=== PATIENT | male | born 1985 | race Caucasian/White ===

== ENCOUNTER → 2017-03-01 | Outpatient (CLI) | payer OTHER | END | disposition home or self-care (01) | LOC: C.LAB 02:05 | DX: Z02.83 Encounter for blood-alcohol and blood-drug test (principal) ==

== ENCOUNTER 2025-07-20 10:55 | Observation (INO) ==
[2025-07-20] MEDS: LABETALOL HCL IV 5 MG/ML 20ML IV STA ×3 (11:28→15:53)
[2025-07-20] MEDS: ASPIRIN CHEW 324 MG PO STA (11:28)
--- NOTE | 2025-07-20 11:31 | Emergency Department Note ---
Impression & Plan Chest pain, Hypertension, Elevated troponin I level ED Provider Note NAME: HUMZA ABAD AGE: 39 SEX: M : 1985 ARRIVES VIA: Walk-In INFORMANT: Patient, ED PROVIDER(S): Harry Chiang DO CHIEF COMPLAINT: Chest pain HPI: The patient is a 39-year-old male who presented to the emergency department for anterior chest pain. The patient started noticing chest pain earlier today. He had a bacterial infection sometime ago. He states ever since that time he has been noticing exertional chest pain. He denies having any lower extremity swelling or pain. He sometimes notices shortness of breath but not currently. He denies having any abdominal pain nausea or vomiting. The patient is often seen by his family doctor for the symptoms. ROS: See above HPI for pertinent positives & negatives. A total of 10 systems reviewed and were otherwise negative. PAST MEDICAL HISTORY: See Below PAST SURGICAL HISTORY: See Below FAMILY HISTORY: See Below SOCIAL HISTORY: See Below HOME MEDICATIONS: See Below ALLERGIES: See Below VITALS: See Below PHYSICAL EXAMINATION: GENERAL: Patient is awake alert in no acute distress patient is resting comfortably and showing no signs of anxiety EYES: The conjunctivae are clear. The pupils are round and reactive. EARS, NOSE, MOUTH AND THROAT: The nose is without any evidence of any deformity. NECK: The neck is nontender and supple. RESPIRATORY: Normal respiratory effort is noted there is no evidence of wheezing rhonchi or rales CARDIOVASCULAR: Tachycardic but regular heart sounds were noted to auscultation. There is no definite murmur. GASTROINTESTINAL: The abdomen is soft. Abdomen is nontender. MUSCULOSKELETAL/EXTREMITIES: There is no evidence of gross deformity full range of motion is noted in the hips and shoulders. SKIN: There is no obvious evidence of any rash. There are no petechiae, pallor or cyanosis noted. Pulses are symmetric in both wrist. NEUROLOGIC: Patient is awake alert and oriented x3 MEDICAL DECISION MAKING: The patient is a 39-year-old male who presented to the emergency department for an evaluation of chest pain. The patient is noticing chest pain as well as tachycardia. He had a recent pulmonary infection he was treated with antibiotics. The patient started noticing the symptoms over the last few days with his blood pressure being elevated. He started taking his antihypertensive medication only again yesterday. This included metoprolol as well as an JOZEF inhibitor. The patient presented today because he was still having chest pain. His blood pressure was very elevated. He was treated with IV antihypertensive medication and aspirin in the emergency department. He was reevaluated multiple times. I discussed the patient's laboratory and radiographic studies with him. Given his findings in the emergency department I feel that he would be a better candidate for inpatient management. [facility]. They will evaluate the patient in the emergency department for further management and disposition. Triage Nursing notes reviewed. Prior medical records reviewed Vital Signs: reviewed and remarkable for hypertension and tachycardia. Differential diagnosis: Cardiac ischemia, aortic dissection, pulmonary embolism, pneumothorax, pneumonia, pericarditis, myocarditis, esophageal rupture, GERD, cholecystitis, pancreatitis, musculoskeletal, as well as other pathologies. ER treatment provided: See below Diagnostics interpreted by me: ECG: EKG was obtained in the emergency department. My interpretation is sinus tachycardia at 124 bpm. There is no ectopy. There is no acute ST segment abnormalities noted. LVH was suggested by voltage criteria. Cardiac Monitoring: An order was placed for continuous cardiac monitoring. The monitor shows a rate of 89 bpm with sinus rhythm. Laboratory studies: As stated above and show below. Imaging studies: See below. Radiographic imaging was reviewed by myself Consultation(s): I discussed this case with the [facility] who [facility]. Past Med/Surg History Problem List (Updated 07/20/25 @ 13:31 by Harry Cihang DO) Elevated troponin I level (Acute) Hypertension (Acute) Chest pain (Acute) Social History Smoking Status: Current every day smoker Tobacco Type: Smokeless Tobacco (Dip or Chew) Preferred Language: Monegasque Feels Safe at Home: Yes Allergies Allergies Allergy/AdvReac Type Severity Reaction Status Date / Time No Known Allergies Allergy Unknown Unverified 10/01/04 11:57 Results & Data (ED) Vital Signs Vital Signs - 24 hr 07/20/25 10:59 07/20/25 11:28 07/20/25 11:51 Temperature 36.5 C Temperature Source Temporal Artery Scan Pulse Rate 127 H 113 H 113 H Pulse Rate from SpO2 Sensor 114 H Respiratory Rate 18 14 Blood Pressure 194/116 H 118/114 H 172/132 H Blood Pressure Mean 142 145 Pulse Oximetry 98 98 Oxygen Delivery Method Room Air Room Air Sepsis New/Unexplained Change in Mental Status No Sepsis Action Taken by Nursing No Action Required 07/20/25 11:57 07/20/25 12:03 07/20/25 12:04 Temperature Temperature Source Pulse Rate 108 H 107 H 112 H Pulse Rate from SpO2 Sensor Respiratory Rate Blood Pressure 175/131 H 178/128 H Blood Pressure Mean Pulse Oximetry Oxygen Delivery Method Sepsis New/Unexplained Change in Mental Status Sepsis Action Taken by Nursing 07/20/25 12:12 07/20/25 12:15 07/20/25 12:17 Temperature Temperature Source Pulse Rate 103 H 101 H Pulse Rate from SpO2 Sensor 103 H 101 H Respiratory Rate 18 21 Blood Pressure 178/128 H 170/123 H 156/120 H Blood Pressure Mean 144 138 127 Pulse Oximetry 98 97 Oxygen Delivery Method Sepsis New/Unexplained Change in Mental Status Sepsis Action Taken by Nursing 07/20/25 12:18 07/20/25 12:30 07/20/25 12:33 Temperature Temperature Source Pulse Rate 100 H 103 H 104 H Pulse Rate from SpO2 Sensor 100 H 104 H Respiratory Rate 23 22 Blood Pressure 156/120 H 157/123 H 157/123 H Blood Pressure Mean 132 134 Pulse Oximetry 97 98 Oxygen Delivery Method Room Air Room Air Sepsis New/Unexplained Change in Mental Status Sepsis Action Taken by Nursing 07/20/25 12:54 Temperature Temperature Source Pulse Rate 108 H Pulse Rate from SpO2 Sensor Respiratory Rate 14 Blood Pressure 173/133 H Blood Pressure Mean 149 Pulse Oximetry 97 Oxygen Delivery Method Room Air Sepsis New/Unexplained Change in Mental Status Sepsis Action Taken by Usp Medications Current Medication List: was personally reviewed by me Laboratory Data Attestation: I reviewed the patient's lab results. 07/20/25 11:14 07/20/25 11:14 Lab Results 07/20/25 07/20/25 Range/Units 11:14 13:03 WBC 11.60 H (4.8-10.8) K/ul RBC 5.32 (4.70-6.10) M/uL Hgb 16.3 (14.0-18.0) g/dL Hct 45.6 (42.0-52.0) % MCV 85.7 (80.0-100.0) fL MCH 30.6 (25.0-34.0) pg MCHC 35.7 (32.0-36.0) g/dL RDW Std Deviation 42.6 (36.4-46.3) fL RDW Coeff of Maisha 14.0 (11.5-14.5) % Plt Count 235 (130-400) K/uL MPV 11.9 (9.4-12.4) fL Immature Gran % (Auto) 0.2 % Neut % (Auto) 75.7 % Lymph % (Auto) 14.2 % Zapata % (Auto) 7.1 % Eos % (Auto) 2.1 % Baso % (Auto) 0.7 % Neut # (Auto) 8.79 H (1.40-6.50) K/uL Lymph # (Auto) 1.65 (1.20-3.40) K/uL Zapata # (Auto) 0.82 H (0.11-0.59) K/uL Eos # (Auto) 0.24 (0.00-0.50) K/uL Baso # (Auto) 0.08 (0.00-0.20) K/uL Immature Gran # (Auto) 0.02 (0.01-0.20) K/uL PT 10.4 (9.0-12.0) Seconds INR 1.0 (0.9-1.1) APTT 26 (21-31) Seconds PTT Ratio 1.0 D-Dimer 860 H* (0-500) ug/L FEU Sodium 138 (136-145) mmol/L Potassium 3.2 L (3.5-5.1) mmol/L Chloride 103 (98-107) mmol/L Carbon Dioxide 24 (21-32) mmol/L Anion Gap 11 (3-11) BUN 13 (6-23) mg/dl Creatinine 1.07 (0.6-1.4) mg/dl Est Cr Clr Drug Dosing 119.6 ml/min eGFR 89.41 BUN/Creatinine Ratio 12.1 (10-20) Glucose 132 H (70-99(Fasting)) mg/dl Calcium 9.4 (8.6-10.3) mg/dl Total Bilirubin 0.6 (0.2-1.0) mg/dl AST 16 (13-39) U/L ALT 17 (7-52) U/L Alkaline Phosphatase 125 H (34-104) U/L Troponin I High Sens 31.3 H 34.3 H (0-20) pg/ml Total Protein 7.9 (6.0-8.3) gm/dl Albumin 4.1 (3.4-5.0) gm/dl Globulin 3.8 (2.5-4.0) gm/dl Albumin/Globulin Ratio 1.1 (0.9-2) Lipase 28 (11-82) U/L Administered Medications Discontinued Medications Aspirin (Aspirin Chew 324 Mg) 324 mg PO NOW STA Stop: 07/20/25 11:22 Last Admin: 07/20/25 11:28 Dose: 324 mg Documented By: GEORGE Ioversol (Optiray 320 125ml) 119 ml IV ONCE ONE Stop: 07/20/25 12:47 Last Admin: 07/20/25 12:46 Dose: 119 ml Documented By: JAMES Labetalol HCl (Labetalol Hcl Iv 5 Mg/Ml 20ml) 10 mg IV NOW STA Stop: 07/20/25 11:22 Last Admin: 07/20/25 11:28 Dose: 10 mg Documented By: GEORGE Labetalol HCl (Labetalol Hcl Iv 5 Mg/Ml 20ml) 10 mg IV NOW STA Stop: 07/20/25 11:58 Last Admin: 07/20/25 12:03 Dose: 10 mg Documented By: GEORGE Morphine Sulfate (Morphine Sulfate 4 Mg/Ml 1 Ml Carp\Vial) 4 mg IV NOW STA Stop: 07/20/25 11:22 Last Admin: 07/20/25 11:32 Dose: Not Given Documented By: GEORGE Ondansetron HCl (Ondansetron Inj 2 Mg/Ml 2 Ml Vial) 4 mg IV NOW STA Stop: 07/20/25 11:22 Last Admin: 07/20/25 11:32 Dose: Not Given Documented By: GEORGE Imaging Data Attestation: I personally reviewed and interpreted this imaging study as follows: My Impression: 1 view chest x-ray was obtained in the emergency department. My interpretation is no free air or definite infiltrate, final report below. Radiologist's Impression: Chest X-Ray 07/20/25 11:21 XR chest 1V portable HISTORY: 39 years-old Male Chest pain, nonspecific COMPARISON: None TECHNIQUE: AP view of the chest FINDINGS: Cardiac silhouette is upper limits of normal in size. No pneumothorax, pleural effusion or airspace consolidation. Spondylotic spurring of the spine. Bones appear grossly intact. IMPRESSION: No acute process ACT 112: Negative or not required by law. The above report was generated using voice recognition software. It may contain grammatical, syntax or spelling errors. Electronically signed by: Chun Flores M.D. 07/20/2025 12:01 PM Chest CTA 07/20/25 12:09 CT ANGIOGRAM OF THE CHEST CLINICAL HISTORY: Chest pain and cough. COMPARISON STUDY: Chest radiograph performed earlier today. TECHNIQUE: Following the IV administration of 119 cc of Optiray 320, CT angiogram of the chest was performed from the upper abdomen to the thoracic inlet utilizing the pulmonary embolus protocol. Images are reviewed in the axial, sagittal, and coronal planes. 3-D MIPS images are created and assessed. IV contrast was administered without complication. A dose lowering technique was utilized adhering to the principles of ALARA. CT DOSE: 931.59 mGy.cm FINDINGS: No pulmonary emboli are identified. There is no thoracic aortic dissection. The heart is mildly enlarged. There is no pericardial effusion. There is no thoracic lymphadenopathy. No pneumothorax or pleural effusion is present. There are scattered small ill-defined nodular opacities within the lungs, including a 1.7 cm subpleural left upper lobe opacity on image 134 and a 9 mm right lower lobe nodular opacity on image 93. Scattered smaller nodular densities with mild adjacent groundglass opacity are present. Central airways are patent. There is probable hepatic steatosis. The visualized upper abdomen is otherwise unremarkable. IMPRESSION: 1. No pulmonary emboli identified. 2. Scattered ill-defined nodular opacities within the lungs with mild associated groundglass opacity. The findings favor a mild infectious process such as bronchiolitis. A chest CT in 3 months to ensure resolution is recommended. ACT 112: Negative or not required by law. Electronically signed by: Vaibhav Abreu M.D. 07/20/2025 1:12 PM Discharge Plan Visit Data Chief Complaint: Cardiac Assessment Stated Complaint: CHEST PAIN, HIGH BLOOD PRESSURE ED Provider: Harry Chiang Discharge Problem: Chest pain, Hypertension, Elevated troponin I level Patient Disposition: Being Evaluated by Hospitalist Condition: Fair Forms Stand Alone Forms: [facility] [place] Referrals Referrals: PCP,NO [Physician] -
[2025-07-20] MEDS: MoRPHine SULFATE 4 MG/ML 1 ML CARP\\VIAL IV STA (11:32)
[2025-07-20] MEDS: ONDANSETRON INJ 2 MG/ML 2 ML VIAL IV STA (11:32)
[2025-07-20 11:52] LABS: Hematocrit (blood only) 45.6 % (42.0-52.0); Hemoglobin 16.3 g/dL (14.0-18.0); Immature Granulocytes # (auto) 0.02 K/uL (0.01-0.20); Immature Granulocytes % (auto) 0.2 %; Mean Corpuscular Hemoglobin 30.6 pg (25.0-34.0); Mean Corpuscular Volume 85.7 fL (80.0-100.0); Platelet Count 235 K/uL (130-400); RDW Standard Deviation 42.6 fL (36.4-46.3); Red Blood Count 5.32 M/uL (4.70-6.10); White Blood Count 11.60 K/ul (4.8-10.8)
--- NOTE | 2025-07-20 12:02 | XRay Report ---
XR chest 1V portable HISTORY: 39 years-old Male Chest pain, nonspecific COMPARISON: None TECHNIQUE: AP view of the chest FINDINGS: Cardiac silhouette is upper limits of normal in size. No pneumothorax, pleural effusion or airspace c onsolidation. Spondylotic spurring of the spine. Bones appear grossly intact. IMPRESSION: No acute process ACT 112: Negative or not required by law. The above report was generated using voice recognition software. It may contain grammatical, syntax o r spelling errors. Electronically signed by: Chun Flores M.D. 07/20/2025 12:01 PM
[2025-07-20 12:04] LABS: INR 1.0 (0.9-1.1); Partial Thromboplastin Time 26 Seconds (21-31); Prothrombin Time 10.4 Seconds (9.0-12.0)
[2025-07-20 12:16] LABS: Albumin Level 4.1 gm/dl (3.4-5.0); Anion Gap 11.0 (3-11); Bilirubin,Total 0.6 mg/dl (0.2-1.0); Calcium 9.4 mg/dl (8.6-10.3); Carbon Dioxide 24.0 mmol/L (21-32); Chloride 103.0 mmol/L (98-107); Potassium 3.2 mmol/L (3.5-5.1); Sodium 138.0 mmol/L (136-145)
[2025-07-20 12:22] LABS: Alanine Aminotransferase 17.0 U/L (7-52); Albumin Globulin Ratio 1.1 (0.9-2); Alkaline Phosphatase 125.0 U/L (34-104); Blood Urea Nitrogen 13.0 mg/dl (6-23); Creatinine Clr Calc Pharmacy 119.6 ml/min; Globulin 3.8 gm/dl (2.5-4.0); Glucose 132.0 mg/dl (70-99(Fasting)); Lipase 28.0 U/L (11-82); Total Protein 7.9 gm/dl (6.0-8.3)
[2025-07-20] MEDS: OPTIRAY 320 125ml IV ONE (12:46)
--- NOTE | 2025-07-20 13:13 | CT Scan Report ---
CT ANGIOGRAM OF THE CHEST CLINICAL HISTORY: Chest pain and cough. COMPARISON STUDY: Chest radiograph performed earlier today. TECHNIQUE: Following the IV administration of 119 cc of Optiray 320, CT angiogram of the chest was pe rformed from the upper abdomen to the thoracic inlet utilizing the pulmonary embolus protocol. Images are reviewed in the axial, sagittal, and coronal planes. 3-D MIPS images are created and assessed. I V contrast was administered without complication. A dose lowering technique was utilized adhering to the principles of ALARA. CT DOSE: 931.59 mGy.cm FINDINGS: No pulmonary emboli are identified. There is no thoracic aortic dissection. The heart is mi ldly enlarged. There is no pericardial effusion. There is no thoracic lymphadenopathy. No pneumothora x or pleural effusion is present. There are scattered small ill-defined nodular opacities within the lungs, including a 1.7 cm subpleural left upper lobe opacity on image 134 and a 9 mm right lower lobe nodular opacity on image 93. Scattered smaller nodular densities with mild adjacent groundglass opac ity are present. Central airways are patent. There is probable hepatic steatosis. The visualized uppe r abdomen is otherwise unremarkable. IMPRESSION: 1. No pulmonary emboli identified. 2. Scattered ill-defined nodular opacities within the lungs with mild associated groundglass opacity. The findings favor a mild infectious process such as bronchiolitis. A chest CT in 3 months to ensure resolution is recommended. ACT 112: Negative or not required by law. Electronically signed by: Vaibhav Abreu M.D. 07/20/2025 1:12 PM
--- NOTE | 2025-07-20 13:47 | History & Physical Report ---
Date of Service July 20, 2025 Assessment & Plan (1) Hypertension: (2) Chest pain: (3) Elevated troponin I level: (4) Bronchiolitis: Plan - Admit to medtele - Does not appear that this is ACS, EKG without acute findings, no current chest pain -Continue metoprolol succinate 50 QAM, amlodipine 10 mg QAM, add losartan 50 mg QPM, and olmesartan tomorrow if continues to have elevated BP. Pt took these meds all last night and this morning. - given labetalol 20 mg IV in the ER with some improvement. Hydralazine 10 mg IV now and can continue prn with dosing parameters for hypertension - Check Lymes with hx of recent tick bites - CTA reviewed showing no pulmonary embolism but does show lung nodules suspicious for previous infectious source with ground glass opacities. Needs repeat imaging in 3 months to ensure this resolved. - Discussed weight loss at bedside with the patient - encouraged lifestyle modifications with including cardio and strength training exercises a few times per week for at least 20 minutes. Goal of 40 lbs weight loss to improve htn, sleep apnea. - Will obtain echocardiogram - Troponin are mildly bumped in the 30s, monitor with Q6H labs - Reduce alcohol use - drinking 9oz liquor daily, will place on AWSS score and prn ativan for any withdrawal symptoms - Cessation of chewing tobacco was encouraged at bedside as he chews 1 can in 5 days, previously smoked cigarettes, quite several years ago - Will need PCP follow up on dc - Consider nephrology follow up as outpatient DVT ppx: scds, ambulatory Lines: PIV x 1 FEN/GI: HH diet CODE: FULL Dispo: From home, likely to remain in the hospital x 1-2 days A total of 75 minutes were spent with greater than 50% of that time face to face with the patient, personally reviewing all current laboratories, imaging studies, past medication reconciliation, outpatient chart review, and discussion with specialists to collaborate care for the patient with attending. Please see attending documentation for corrections and/or additions. History of Present Illness Chief Complaint: Chest pain, elevated BP Primary Care Provider: Blaise Waggoner MD This is a 39-year-old male with PMHx of elevated blood pressure, obesity with BMI of 39, recent bacterial sinusitis treated with Augmentin x 10 days, who presents to the hospital with acute worsening chest pain/heaviness. Per outpatient chart review review he was seen at [facility] at the end of June and prescribed 10-day course of Augmentin and fluticasone propionate nasal spray for bacterial sinusitis. There was no viral panel obtained at that time. Patient states that he has been having elevated blood pressure the past 3 weeks, with intermittent chest pain since having been diagnosed with the bacterial sinusitis. He resumed taking his home antihypertensive which include amlodipine 10 mg daily, Olmesartan 40 mg daily, metoprolol succinate 50 mg which he restarted last night after not taking if for just less than 1 year. He previously smoked cigarettes, currently chews tobacco with 1 can in about 5 days. Pt admits to alcohol use, drinks 3oz ronaldo with jeff beer and water x 3 glasses about every night. We discussed that this is 9 standard drinks daily for a person, and that it is recommended that he cut this back to only 2-3 standard drinks per day. Pt also notes he was previously prescribed cpap for sleep apnea, however could not wear the mask/nasal pillow style. Pt also notes frequent tick bites due to hunting a lot recently. He has never been tested for lymes disease. Pt thinks he was bite by something on his back within the past week. His parents are with him at bedside and support the history. In the ER today patient is found to have significantly elevated blood pressure of 173/133, pulse 110, hypokalemic with K of 3.2, borderline elevated WBC of 11.60, D-dimer of 830, troponin 34.3-31.3. a CTA of the chest was obtained to rule out pulmonary embolism, is negative for such however does show ill-defined nodular opacities within the lung with associated ground glass opacity, favoring a mild infectious process such as bronchiolitis. CXR is negative for acute findings. BP repeat is down to 169/121, improved from previously. Allergies Allergy/AdvReac Type Severity Reaction Status Date / Time No Known Allergies Allergy Unknown Verified 07/20/25 14:49 Home Medications Medication Instructions Recorded Confirmed Type amlodipine 10 mg tablet 10 mg PO DAILY 07/20/25 07/20/25 History metoprolol succinate 50 mg 50 mg PO DAILY 07/20/25 07/20/25 History tablet,extended release 24 hr olmesartan 40 mg tablet 40 mg PO DAILY 07/20/25 07/20/25 History Past Med/Surg History Problem List (Updated 07/20/25 @ 13:47 by Monique Fiore PA-C) Bronchiolitis Elevated troponin I level (Acute) Hypertension (Acute) Chest pain (Acute) Family History (Updated 07/20/25 @ 14:26 by Monique Fiore PA-C) Father Heart disease Hypertension Social History (Updated 07/20/25 @ 14:27 by Monique Fiore PA-C) Smoking Status: Former smoker Tobacco Type: Cigarettes and Smokeless Tobacco (Dip or Chew) Do You Dip or Chew Tobacco: Yes; Hx Alcohol Use: Yes Hx Substance Use: No Preferred Language: [place] Feels Safe at Home: Yes Review of Systems Review of Systems: Constitutional: No fever, sweats or chills Eyes: No diplopia, no worsening or blurred vision ENT: normal hearing, no trouble swallowing Respiratory: + Dry cough, no sputum, nodyspnea at rest, occasional dyspnea on exertion Cardiovascular: + intermittent chest pain not exacerbated by exertional activities, no tightness or palpitations Abdomen: No pain, nausea, vomiting, diarrhea or constipation Musculoskeletal: No joint pain, calf pain, swelling Neurologic: No weakness, numbness/tingling, or balance problems Psychiatric: No anxiety or depression Skin: No rash or itch Physical Exam Physical Exam: General: awake, alert, no apparent distress, obese white male BMI 39 Head: Normocephalic, atraumatic ENT: PERRL, EOMI, no pharyngeal exudate, mucous membranes moist Chest: Clear to auscultation, on room air, no adventitious breath sounds Cardiac: Regular rate and rhythm, no murmur, no JVD, normal peripheral pulses, good capillary refill Abdominal: NABS x 4 quadrants, soft, nondistended, nontender to palpation, no rebound or guarding Extremities: Normal inspection, no peripheral edema or erythema, calfs nontender to palpation Psych: Normal mood and affect Neuro: AAO x 3, strength intact bilaterally and rated 5/5, no motor deficits, speech is clear, no peripheral sensory deficits Results & Data Results & Data Vital Signs (Past 12 Hours) Vital Signs Temp Pulse Resp BP Pulse Ox O2 Del Method 07/20/25 12:54 108 H 14 173/133 H 97 Room Air 07/20/25 12:33 104 H 157/123 H 07/20/25 12:30 103 H 22 157/123 H 98 Room Air 07/20/25 12:18 100 H 23 156/120 H 97 Room Air 07/20/25 12:17 156/120 H 07/20/25 12:15 101 H 21 170/123 H 97 07/20/25 12:12 103 H 18 178/128 H 98 07/20/25 12:04 112 H 07/20/25 12:03 107 H 178/128 H 07/20/25 11:57 108 H 175/131 H 07/20/25 11:51 113 H 14 172/132 H 98 Room Air 07/20/25 11:28 113 H 118/114 H 07/20/25 10:59 36.5 C 127 H 18 194/116 H 98 Room Air Laboratory Results 07/20/25 07/20/25 13:03 11:14 WBC 11.60 H RBC 5.32 Hgb 16.3 Hct 45.6 MCV 85.7 MCH 30.6 MCHC 35.7 RDW Std Deviation 42.6 RDW Coeff of Maisha 14.0 Plt Count 235 MPV 11.9 Immature Gran % (Auto) 0.2 Neut % (Auto) 75.7 Lymph % (Auto) 14.2 [place] % (Auto) 7.1 Eos % (Auto) 2.1 Baso % (Auto) 0.7 Neut # (Auto) 8.79 H Lymph # (Auto) 1.65 [place] # (Auto) 0.82 H Eos # (Auto) 0.24 Baso # (Auto) 0.08 Immature Gran # (Auto) 0.02 PT 10.4 INR 1.0 APTT 26 PTT Ratio 1.0 D-Dimer 860 H* Sodium 138 Potassium 3.2 L Chloride 103 Carbon Dioxide 24 Anion Gap 11 BUN 13 Creatinine 1.07 Est Cr Clr Drug Dosing 119.6 eGFR 89.41 BUN/Creatinine Ratio 12.1 Glucose 132 H Calcium 9.4 Total Bilirubin 0.6 AST 16 ALT 17 Alkaline Phosphatase 125 H Troponin I High Sens 34.3 H 31.3 H Total Protein 7.9 Albumin 4.1 Globulin 3.8 Albumin/Globulin Ratio 1.1 Lipase 28 Diagnostic Findings Chest X-Ray 07/20/25 11:21 XR chest 1V portable HISTORY: 39 years-old Male Chest pain, nonspecific COMPARISON: None TECHNIQUE: AP view of the chest FINDINGS: Cardiac silhouette is upper limits of normal in size. No pneumothorax, pleural effusion or airspace consolidation. Spondylotic spurring of the spine. Bones appear grossly intact. IMPRESSION: No acute process ACT 112: Negative or not required by law. The above report was generated using voice recognition software. It may contain grammatical, syntax or spelling errors. Electronically signed by: Chun Flores M.D. 07/20/2025 12:01 PM Chest CTA 07/20/25 12:09 CT ANGIOGRAM OF THE CHEST CLINICAL HISTORY: Chest pain and cough. COMPARISON STUDY: Chest radiograph performed earlier today. TECHNIQUE: Following the IV administration of 119 cc of Optiray 320, CT angiogram of the chest was performed from the upper abdomen to the thoracic inlet utilizing the pulmonary embolus protocol. Images are reviewed in the axial, sagittal, and coronal planes. 3-D MIPS images are created and assessed. IV contrast was administered without complication. A dose lowering technique was utilized adhering to the principles of ALARA. CT DOSE: 931.59 mGy.cm FINDINGS: No pulmonary emboli are identified. There is no thoracic aortic d issection. The heart is mildly enlarged. There is no pericardial effusion. There is no thoracic lymphadenopathy. No pneumothorax or pleural effusion is present. There are scattered small ill-defined nodular opacities within the lungs, including a 1.7 cm subpleural left upper lobe opacity on image 134 and a 9 mm right lower lobe nodular opacity on image 93. Scattered smaller nodular densities with mild adjacent groundglass opacity are present. Central airways are patent. There is probable hepatic steatosis. The visualized upper abdomen is otherwise unremarkable. IMPRESSION: 1. No pulmonary emboli identified. 2. Scattered ill-defined nodular opacities within the lungs with mild associated groundglass opacity. The findings favor a mild infectious process such as bronchiolitis. A chest CT in 3 months to ensure resolution is recommended. ACT 112: Negative or not required by law. Electronically signed by: Vaibhav Abreu M.D. 07/20/2025 1:12 PM ECG Additional Comments: Sinus tachycardia, left axis deviation, possible LVH Code Status & VTE Plan Code Status Full code - discussed with pt at bedside Supervising Physician Co-Signing Physician Notes 39 yo M w/ PMH of elevated blood pressure (on 4 BP meds, non compliant), obesity with BMI of 39, recent bacterial sinusitis treated with Augmentin x 10 days presents w/ on and off chest pain for about 3 weeks now, no radiation, not a/w sob/sweating/nausea/dry heaves, lasting few minutes to several minutes, eases on its own, would come at rest and w/ activity. Pt denies N, V, D, Fever. Pt denies sore throat, cough, headache. Labs fairly wnl, wbc slightly elevated, no s/s of infection, monitor off antibiotic D dimer elevated, she is negative for PE. Hypokalemia, replete potassium, labs in AM. Troponin elevation, flat trend likely demand ischemia in the setting of high blood pressure. Continue to trend troponin, will get echo, continue telemetry monitoring. Hypertensive urgency: Resume losartan, amlodipine, metoprolol. Will need to uptitrate medications as needed and possibly add hydrochlorothiazide if blood pressure is not controlled. Blood pressure medications on board. On exam: Patient on room air, no BLE edema,Heart rate in high 90s, heart/lung/abdomen examination fairly WNL. Total time spent independently: 25 minutes. I have seen and examined the patient and have discussed the case with the provider above. I agree with the assessment and plan as stated.
[2025-07-20 15:11] LABS: Chlamydia pneumoniae PCR Not Detected (NotDetected); Coronavirus 229E PCR Not Detected (NotDetected); Coronavirus CoV-2 (COVID19)PCR Not Detected (NotDetected); Coronavirus HKU1 PCR Not Detected (NotDetected); Coronavirus NL63 PCR Not Detected (NotDetected); Coronavirus OC43PCR Not Detected (NotDetected); Human Metapneumovirus PCR Not Detected (NotDetected); Parainfluenza Virus 1 PCR Not Detected (NotDetected); Parainfluenza Virus 2 PCR Not Detected (NotDetected); Parainfluenza Virus 3 PCR Not Detected (NotDetected); Parainfluenza Virus 4 PCR Not Detected (NotDetected); Respiratory Syncytial VirusPCR Not Detected (NotDetected); Rhinovirus/Enterovirus PCR Not Detected (NotDetected)
[2025-07-20] MEDS: POTASSIUM CHLORIDE CRTAB 20 MEQ TABCR PO STA (15:52)
[2025-07-20] MEDS ORDERED: ONDANSETRON INJ 2 MG/ML 2 ML VIAL IV PRN (16:59)
[2025-07-20] MEDS ORDERED: LORazepam Inj 2 MG in SYRINGE 1 ML IV PRN (16:59)
[2025-07-20] MEDS ORDERED: LORazepam Inj 3 MG in SYRINGE 1.5 ML IV PRN (16:59)
[2025-07-20] MEDS ORDERED: ACETAMINOPHEN 325 MG TAB PO PRN (16:59)
[2025-07-20] MEDS ORDERED: LORazepam Inj 1 MG in SYRINGE 0.5 ML IV PRN (16:59)
--- NOTE | 2025-07-20 18:25 | XCELERA ---
[id number] \\[id number]
[2025-07-20] MEDS: LOSARTAN POTASSIUM 50 MG TAB PO SCH (19:37)
[2025-07-20] MEDS ORDERED: LOSARTAN POTASSIUM 50 MG TAB PO SCH (21:00)
[2025-07-21 08:39] LABS: Hematocrit (blood only) 45.0 % (42.0-52.0); Hemoglobin 15.9 g/dL (14.0-18.0); Mean Corpuscular Hemoglobin 30.6 pg (25.0-34.0); Mean Corpuscular Volume 86.5 fL (80.0-100.0); Platelet Count 208 K/uL (130-400); RDW Standard Deviation 44.1 fL (36.4-46.3); Red Blood Count 5.20 M/uL (4.70-6.10); White Blood Count 7.91 K/ul (4.8-10.8)
[2025-07-21 08:54] LABS: Anion Gap 9.0 (3-11); Blood Urea Nitrogen 11.0 mg/dl (6-23); Calcium 9.3 mg/dl (8.6-10.3); Carbon Dioxide 26.0 mmol/L (21-32); Chloride 104.0 mmol/L (98-107); Cholesterol 209.0 mg/dl (0-200); Creatinine Clr Calc Pharmacy 122.8 ml/min; Glucose 117.0 mg/dl (70-99(Fasting)); HDL Cholesterol 67.0 mg/dl; Potassium 4.3 mmol/L (3.5-5.1); Sodium 139.0 mmol/L (136-145); Triglycerides 131.0 mg/dl (0-150)
[2025-07-21] MEDS: METOPROLOL SUCC 50MG EXT REL TAB PO SCH (08:55)
[2025-07-21 09:08] LABS: Hemoglobin A1C 5.2 % (4.5-5.6)
--- NOTE | 2025-07-21 09:44 | Cardiology Consultation ---
Date of Consultation July 21, 2025 Assessment & Plan (1) Hypertensive urgency: Patient presents with chest pain and uncontrolled hypertension. He has been found to have moderate left ventricular systolic dysfunction with moderate global left ventricular hypokinesis, left ventricular ejection fraction in the range of 35-40%. He has a longstanding history of hypertension had previously been prescribed 4 agents, metoprolol succinate 50 mg daily, olmesartan 40 mg daily, amlodipine 10 mg daily, and chlorthalidone 25 mg daily. He has previously been seen by [facility] most recent visit a year ago and patient states that around that time he completely discontinued all 4 of his blood pressure medications. The patient presents with chest tightness, mild but flat elevation in the high sensitive troponin noted and no ischemic changes on EKG. Blood pressure has improved with reinitiation of the oral agents amlodipine, metoprolol, losartan. -Presentation suggestive of uncontrolled hypertension with left ventricular systolic dysfunction which may be related to the underlying uncontrolled hypertension or related to his alcohol use. Volume status is euvolemic. -Recommend transitioning from metoprolol succinate to carvedilol, starting with dose of 6.25 mg twice daily. -Transition losartan to Entresto 24/26 mg twice daily. -Discontinue amlodipine due to left ventricular systolic dysfunction. -Patient counseled to cut back or ideally stop alcohol. Although the presence of obstructive coronary disease is not excluded in this patient, I do not think his presentation is suggestive of an acute coronary syndrome. Future considerations include stress myocardial perfusion imaging study as an outpatient once blood pressure under better control.Patient to remain in the hospital on the telemetry unit. Siria Brown DO History of Present Illness Attending Physician: Kevin Cardona DO History of Present Illness Winston Reeves is a 39 yea old male seen in cardiology consultation per the request of Dr Cardona for the evaluation of hypertension and newly diagnosed moderate left ventricular systolic dysfunction. Both of patient's parents were at the bedside during my evaluation. Patient notes having had a sinus infection about a month ago. His congestion has resolved but he notes that for the last 3 weeks he has had waxing and waning chest discomfort. He works in the field of maintenance and when he arrived for his job yesterday before he did any physical chores he felt a vague midline chest tightness. On arrival to the emergency department his initial blood pressure was 194/116. He received a dose of 5 mg of IV labetalol followed by oral metoprolol succinate, losartan. He states his symptoms resolved in the emergency department prior to being admitted and transferred to the telemetry floor. He was comfortable overnight last night and thus far today. PAST MEDICAL HISTORY hypertension FAMILY HISTORY Father alive at the age of 67, no known history of coronary heart disease, he is on medication for hypertension. He has been diagnosed with dyslipidemia but has been intolerant to his prescribed statin medication and therefore is not on statin medication Mother is alive at the age of 66, no history of heart disease Maternal grandfather with history of myocardial infarction Paternal grandfather history of myocardial infarction SOCIAL HISTORY He uses smokeless tobacco, having previously smoked cigarettes Works in [employer] He drinks 3 ounces of ronaldo with jeff beer and water x 3 glasses every night Allergies Allergy/AdvReac Type Severity Reaction Status Date / Time No Known Allergies Allergy Unknown Verified 07/20/25 14:49 Home Medications Medication Instructions Recorded Confirmed Type amlodipine 10 mg tablet 10 mg PO DAILY 07/20/25 07/20/25 History metoprolol succinate 50 mg 50 mg PO DAILY 07/20/25 07/20/25 History tablet,extended release 24 hr olmesartan 40 mg tablet 40 mg PO DAILY 07/20/25 07/20/25 History Patient History Family History (Updated 07/20/25 @ 14:26 by Monique Fiore PA-C) Father Heart disease Hypertension Social History Smoking Status: Never smoker Tobacco Type: Smokeless Tobacco (Dip or Chew) Second Hand Exposure: No; Do You Dip or Chew Tobacco: Yes; Tobacco Cessation Education Requested by Patient: No Hx Alcohol Use: Yes Alcohol type: hard liquor Hx Substance Use: No Preferred Language: Welsh Crm Administrator Required: No Beliefs That Will Affect Care: None Current Living Situation: Family Other Information That Helps Us Care for You: No Feels Safe at Home: Yes Assistive Devices: None Review of Systems Review of Systems: All systems reviewed & are unremarkable except as noted in HPI & below Physical Exam Physical Exam: Temp Pulse Resp BP Pulse Ox O2 Del Method 36.3 C L 98 H 16 147/101 H 97 Room Air 07/21/25 08:02 07/21/25 08:02 07/21/25 08:02 07/21/25 08:02 07/21/25 08:02 07/21/25 08:02 Constitutional: + obese; no acute distress Eyes: PERRL, conjunctivae normal, anicteric sclerae ENMT: external ear and nose normal, oropharynx normal Respiratory: normal respiratory effort, lungs clear to auscultation Cardiovascular: RRR, no murmur, no edema Vessels: no JVD Extremities: + edema Gastrointestinal (Abdomen): normal bowel sounds, soft, nontender, no hepatosplenomegaly Neurologic: PERRL, EOMI, accommodation nl, no face palsy, no dysarthria Results & Data Laboratory Results Cardiac Enzymes 07/20/25 07/20/25 07/20/25 Range/Units 11:14 13:03 18:39 AST 16 (13-39) U/L Troponin I High Sens 31.3 H 34.3 H 35.8 H (0-20) pg/ml 07/20/25 07/21/25 Range/Units 23:25 08:22 AST (13-39) U/L Troponin I High Sens 36.9 H 26.5 H D (0-20) pg/ml Coagulation 07/20/25 Range/Units 11:14 PT 10.4 (9.0-12.0) Seconds APTT 26 (21-31) Seconds Lipids 07/21/25 Range/Units 08:22 Triglycerides 131 (0-150) mg/dl Cholesterol 209 H (0-200) mg/dl HDL Cholesterol 67 mg/dl Cholesterol/HDL Ratio 3.1 (0-5) LDL cholesterol 116 mg /dl CBC 07/20/25 07/21/25 Range/Units 11:14 08:22 WBC 11.60 H 7.91 (4.8-10.8) K/ul RBC 5.32 5.20 (4.70-6.10) M/uL Hgb 16.3 15.9 (14.0-18.0) g/dL Hct 45.6 45.0 (42.0-52.0) % Plt Count 235 208 (130-400) K/uL Neut # (Auto) 8.79 H (1.40-6.50) K/uL Lymph # (Auto) 1.65 (1.20-3.40) K/uL [place] # (Auto) 0.82 H (0.11-0.59) K/uL Eos # (Auto) 0.24 (0.00-0.50) K/uL Baso # (Auto) 0.08 (0.00-0.20) K/uL Comprehensive Metabolic Panel 07/20/25 07/21/25 Range/Units 11:14 08:22 Sodium 138 139 (136-145) mmol/L Potassium 3.2 L 4.3 D (3.5-5.1) mmol/L Chloride 103 104 (98-107) mmol/L Carbon Dioxide 24 26 (21-32) mmol/L BUN 13 11 (6-23) mg/dl Creatinine 1.07 1.08 (0.6-1.4) mg/dl Glucose 132 H 117 H (70-99(Fasting)) mg/dl Calcium 9.4 9.3 (8.6-10.3) mg/dl AST 16 (13-39) U/L ALT 17 (7-52) U/L Alkaline Phosphatase 125 H (34-104) U/L Total Protein 7.9 (6.0-8.3) gm/dl Albumin 4.1 (3.4-5.0) gm/dl Diagnostic Findings Summary transthoracic echocardiogram performed 07/20/2025, with images reviewed and interpreted independently: The study was technically adequate. There is no comparison study available. Left ventricular systolic function is moderately reduced. Left Ventricular Ejection Fraction = 35-40%. There is mild concentric left ventricular hypertrophy. There is moderate global hypokinesis of the left ventricle. There is mild mitral regurgitation. Aortic root is mildly enlarged, 4.0 cm -no prior studies are available for comparison Summary of CT angiogram of the chest 07/20/2025: 1. No pulmonary emboli identified. 2. Scattered ill-defined nodular opacities within the lungs with mild associated groundglass opacity. The findings favor a mild infectious process such as bronchiolitis. A chest CT in 3 months to ensure resolution is recommended. EKG performed 07/20/2025 interpreted dependently revealed sinus tachycardia at 124 bpm. Moderate voltage criteria for left ventricular hypertrophy noted in lead aVL. Repeat EKG performed 07/21/2025 at 907 interpreted independently revealed sinus tachycardia 104 bpm, incomplete right bundle branch block, corrected QT interval is measured to be mildly prolonged at 500 ms, left ventricular hypertrophy by voltage criteria, no acute ischemic changes PG Care Time/CCT Total # of Minutes Spent Total Time Spent with Patient: Total time spent is greater than 50% in coordination of care (as documented) at patient's floor/unit and/or counseling patient: Coding Level of Care Code 60187 IN/OBS CONSULT LVL 4,60M Diagnoses Hypertensive urgency I16.0
--- NOTE | 2025-07-21 09:46 | Hospitalist Progress Note ---
Date of Service July 21, 2025 Assessment & Plan (1) Hypertension: (2) Chest pain: (3) Elevated troponin I level: (4) Bronchiolitis: Plan 39M with PMH HTN, tobacco abuse presents with substernal chest pain and HTN #Chest pain #New Cardiomyopathy -It is not related to exertion or improved with rest -No radiating symptoms -Non-cardiac by description however he did have a mild trop elevation 31-->36-->26 -Unclear clinical significance of his trop elevation -CTA neg for PE but did show possible bronchiolitis- no resp symptoms at this time -EKG in ED showing sinus tach with LVH likely from poorly controlled HTN -TTE shows EF 35% which is new. -No s/s CHF Plan -Appreciate cardio input, will likely need an ischemic workup prior to DC -Cardiac monitoring #HTN -BP better today, currently on ARB, norvasc, and toprol daily -Given his newly decreased EF, cardio will likely adjust regimen -PRN IV hydralazine #Tobacco abuse -He was counseled on importance of cessation on admission I spent a total of 55 minutes coordinating, documenting, and providing care for this patient excluding time spent in the performance of separately billed services. This included personally reviewing all current laboratories and imaging studies, medical reconciliation, outpatient chart review and discussion with specialists Admission and Anticipated Discharge Date Admission Date: July 20, 2025 Subjective feeling well today without any complaints. Physical Exam Physical Exam: Vitals and labs reviewed General: obese Well appearing, NAD HEENT: EOMI, PERRLA Neck: Supple Cardiac: RRR no rubs gallops or murmurs Lungs: CTA no rhonchi wheezing or rales Abd: S NT ND BS positive : Deffered MSK: Full ROM. No obvious deformities Ext: No Edema cyanosis Skin: Warm, Dry Neuro: AOx3 No focal deficits. Psych: Normal Mood Results & Data Results & Data Vital Signs (Past 12 Hours) Vital Signs Temp Pulse Pulse Resp BP Pulse Ox O2 Del Method 07/21/25 08:02 36.3 C L 98 H 16 147/101 H 97 Room Air 07/21/25 07:00 78 07/21/25 03:34 36.6 C 96 H 16 138/94 94 Room Air 07/20/25 23:23 36.7 C 90 18 150/101 H 98 Room Air 07/20/25 21:56 85 Laboratory Results Abnormal lab results 07/20/25 07/20/25 07/20/25 Range/Units 11:14 13:03 18:39 WBC 11.60 H (4.8-10.8) K/ul Neut # (Auto) 8.79 H (1.40-6.50) K/uL [place] # (Auto) 0.82 H (0.11-0.59) K/uL D-Dimer 860 H* (0-500) ug/L FEU Potassium 3.2 L (3.5-5.1) mmol/L Glucose 132 H (70-99(Fasting)) mg/dl Alkaline Phosphatase 125 H (34-104) U/L Troponin I High Sens 31.3 H 34.3 H 35.8 H (0-20) pg/ml Cholesterol (0-200) mg/dl 07/20/25 07/21/25 Range/Units 23:25 08:22 WBC (4.8-10.8) K/ul Neut # (Auto) (1.40-6.50) K/uL [place] # (Auto) (0.11-0.59) K/uL D-Dimer (0-500) ug/L FEU Potassium (3.5-5.1) mmol/L Glucose 117 H (70-99(Fasting)) mg/dl Alkaline Phosphatase (34-104) U/L Troponin I High Sens 36.9 H 26.5 H D (0-20) pg/ml Cholesterol 209 H (0-200) mg/dl
[2025-07-21 12:40] LABS: Thyroid Stimulating Hormone 1.278 uIu/ml (0.300-4.500)
[2025-07-21] MEDS: LABETALOL HCL IV 5 MG/ML 20ML IV PRN (21:12)
[2025-07-21] MEDS: VALSARTAN/SACUBITRIL 26/24MG TAB PO SCH (21:12)
--- NOTE | 2025-07-22 09:20 | Electrocardiogram Report ---
Test Reason : Blood Pressure : */* mmHG Vent. Rate : 124 BPM Atrial Rate : 124 BPM P-R Int : 148 ms QRS Dur : 98 ms QT Int : 330 ms P-R-T Axes : 36 -37 78 degrees QTcB Int : 474 ms Sinus tachycardia Left axis deviation Moderate voltage criteria for LVH, may be normal variant ( R in aVL , [place] product ) Abnormal ECG No previous ECGs available Confirmed by Jeff Maravilla ([id number]) on 07/22/2025 9:19:59 AM Referred By: REFERRED SELF Confirmed By: Jeff Maravilla
--- NOTE | 2025-07-22 09:59 | Electrocardiogram Report ---
Test Reason : Blood Pressure : */* mmHG Vent. Rate : 104 BPM Atrial Rate : 104 BPM P-R Int : 156 ms QRS Dur : 96 ms QT Int : 382 ms P-R-T Axes : 21 -39 69 degrees QTcB Int : 502 ms Sinus tachycardia Possible Left atrial enlargement Left axis deviation Incomplete right bundle branch block Minimal voltage criteria for LVH, may be normal variant ( R in aVL ) Prolonged QT Abnormal ECG When compared with ECG of 20-Jul-2025 11:07, (unconfirmed) No significant change was found Confirmed by Jeff Maravilla ([id number]) on 07/22/2025 9:58:30 AM Referred By: REFERRED SELF Confirmed By: Jeff Maravilla
--- NOTE | 2025-07-22 10:14 | Cardiology Progress Note ---
Date of Service July 22, 2025 Assessment & Plan (1) Hypertensive urgency: Plan: Patient presents with chest pain and uncontrolled hypertension. He has been found to have moderate left ventricular systolic dysfunction with moderate global left ventricular hypokinesis, left ventricular ejection fraction in the range of 35-40%. He has a longstanding history of hypertension had previously been prescribed 4 agents, metoprolol succinate 50 mg daily, olmesartan 40 mg daily, amlodipine 10 mg daily, and chlorthalidone 25 mg daily. He has previously been seen by [facility] nephrology most recent visit a year ago and patient states that around that time he completely discontinued all 4 of his blood pressure medications. Although the presence of obstructive coronary disease is not excluded in this patient, I do not think his presentation is suggestive of an acute coronary syndrome. Nonischemic cardiomyopathy related to long standing uncontrolled hypertension (off medications x 1 year) versus alcohol related cardiomyopathy felt to be likely. Future considerations include stress myocardial perfusion imaging study as an outpatient once blood pressure under better control. -Titrate Coreg to 12.5 mg BID. -Entresto 24/26 mg twice daily. -Discontinue amlodipine due to left ventricular systolic dysfunction. -Patient counseled to cut back or ideally stop alcohol. A follow up BMP order was placed . Await results prior to consideration for discharge. Effort underway to obtain prior auth for generic Sacubitril/ valsartan Outpatient BMP in a week to follow up kidney function and electrolytes (I will place order in outpatient chart). Request for cardio follow up visit placed in outpatient chart. Siria Brown DO Admission and Anticipated Discharge Date Admission Date: July 20, 2025 Subjective Patient seen in cardiology follow up. Feels well without chest discomfort or shortness of breath. Telemetry reveals SR in the 80s to 90s. Review of Systems Review of Systems: All systems reviewed & are unremarkable except as noted in HPI & below Physical Exam Physical Exam: Temp Pulse Resp BP Pulse Ox O2 Del Method 36.3 C L 93 H 20 151/93 H 95 Room Air 07/22/25 07:49 07/22/25 07:49 07/22/25 07:49 07/22/25 07:49 07/22/25 07:49 07/22/25 07:49 Constitutional: + obese; no acute distress Eyes: PERRL, conjunctivae normal, anicteric sclerae ENMT: external ear and nose normal, oropharynx normal Respiratory: normal respiratory effort, lungs clear to auscultation Cardiovascular: RRR, no murmur, no edema Vessels: no JVD Extremities: + edema Gastrointestinal (Abdomen): normal bowel sounds, soft, nontender, no hepatosplenomegaly Neurologic: PERRL, EOMI, accommodation nl, no face palsy, no dysarthria Results & Data Laboratory Results Intake and Output 07/21/25 07/22/25 07/22/25 22:59 06:59 14:59 Intake Total 350 / 1010 300 / 1010 Balance 350 / 1010 300 / 1010 Intake: Oral 350 / 1010 300 / 1010 Other: # Unmeasured Voids 1 Diagnostic Findings BMP results are pending Coding Level of Care Code 90090 SUB INP/OBS CARE 3/50MIN Diagnoses Hypertensive urgency I16.0
[2025-07-22 11:55] LABS: Anion Gap 7.0 (3-11); Blood Urea Nitrogen 11.0 mg/dl (6-23); Calcium 9.2 mg/dl (8.6-10.3); Carbon Dioxide 24.0 mmol/L (21-32); Chloride 105.0 mmol/L (98-107); Creatinine Clr Calc Pharmacy 145.7 ml/min; Glucose 111.0 mg/dl (70-99(Fasting)); Potassium 3.7 mmol/L (3.5-5.1); Sodium 136.0 mmol/L (136-145)
--- NOTE | 2025-07-22 12:14 | Discharge Summary ---
Discharge Summary Date of Service July 22, 2025 Principal Dx & Hospital Course #1 = Principal Diagnosis (1) Hypertension: (2) Chest pain: (3) Elevated troponin I level: (4) Bronchiolitis: Plan 39M with PMH HTN, tobacco abuse presents with substernal chest pain and HTN. He was found to have a newly reduced EF of 35%. Cardiology was consulted. Etiology likely secondary to poorly controlled HTN and significant alcohol use. He was started on entresto and coreg. norvasc dc. Cardiology believes low suspicion for CAD but will perform OP stress test at a later date. BP improved. today he feels very well and wishes to go home. denies any complaints. Entresto requires prior autho and [facility] is working on getting it filled by 07/25. D/w cardiology, in the meantime, he will take losartan 25mg BID until he picks up his entresto. He will then stop the losartan. His coreg dose was increased today to 12.5 BID for better BP control. He was instructed to follow up with cardiology. He was instructed on the importance of medication compliance and to stop drinking alcohol. vitals and labs are stable on day of discharge. #Chest pain #New Cardiomyopathy--suspect non ischemic cardiomyopathy -It is not related to exertion or improved with rest -No radiating symptoms -Non-cardiac by description however he did have a mild trop elevation 31-->36-->26 -Unclear clinical significance of his trop elevation -CTA neg for PE but did show possible bronchiolitis- no resp symptoms at this time -EKG in ED showing sinus tach with LVH likely from poorly controlled HTN -TTE shows EF 35% which is new. -No s/s CHF Notes For Next Care Provider Medication Changes From Visit entresto and coreg added norvasc DC Admission HPI Per Admitting Provider This is a 39-year-old male with PMHx of elevated blood pressure, obesity with BMI of 39, recent bacterial sinusitis treated with Augmentin x 10 days, who presents to the hospital with acute worsening chest pain/heaviness. Per outpatient chart review review [facility] and prescribed 10-day course of Augmentin and fluticasone propionate nasal spray for bacterial sinusitis. There was no viral panel obtained at that time. Patient states that he has been having elevated blood pressure the past 3 weeks, with intermittent chest pain since having been diagnosed with the bacterial sinusitis. He resumed taking his home antihypertensive which include amlodipine 10 mg daily, Olmesartan 40 mg daily, metoprolol succinate 50 mg which he restarted last night after not taking if for just less than 1 year. He previously smoked cigarettes, currently chews tobacco with 1 can in about 5 days. Pt admits to alcohol use, drinks 3oz ronaldo with jeff beer and water x 3 glasses about every night. We discussed that this is 9 standard drinks daily for a person, and that it is recommended that he cut this back to only 2-3 standard drinks per day. Pt also notes he was previously prescribed cpap for sleep apnea, however could not wear the mask/nasal pillow style. Pt also notes frequent tick bites due to hunting a lot recently. He has never been tested for lymes disease. Pt thinks he was bite by something on his back within the past week. His parents are with him at bedside and support the history. In the ER today patient is found to have significantly elevated blood pressure of 173/133, pulse 110, hypokalemic with K of 3.2, borderline elevated WBC of 11.60, D-dimer of 830, troponin 34.3-31.3. a CTA of the chest was obtained to rule out pulmonary embolism, is negative for such however does show ill-defined nodular opacities within the lung with associated ground glass opacity, favoring a mild infectious process such as bronchiolitis. CXR is negative for acute findings. BP repeat is down to 169/121, improved from previously. Discharge Exam Vitals and labs reviewed General: obese, well appearing, NAD HEENT: EOMI, PERRLA Neck: Supple Cardiac: RRR no rubs gallops or murmurs Lungs: CTA no rhonchi wheezing or rales Abd: S NT ND BS positive : Deffered MSK: Full ROM. No obvious deformities Ext: No Edema cyanosis Skin: Warm, Dry Neuro: AOx3 No focal deficits. Psych: Normal Mood Updated Medication List Medication Instructions Recorded Confirmed Type amlodipine 10 mg tablet 10 mg PO DAILY 07/20/25 07/20/25 History metoprolol succinate 50 mg 50 mg PO DAILY 07/20/25 07/20/25 History tablet,extended release 24 hr olmesartan 40 mg tablet 40 mg PO DAILY 07/20/25 07/20/25 History carvedilol 12.5 mg tablet (Coreg) 12.5 mg PO BID 30 days #60 tabs 07/22/25 Rx losartan 25 mg tablet 25 mg PO BID 7 days #14 tabs 07/22/25 Rx sacubitril 24 mg-valsartan 26 mg 1 tab PO BID 30 days #60 tabs 07/22/25 Rx tablet (Entresto) Hospital Stay Data Consultations 07/20/25 13:39 ED Decision to Admit Stat 07/21/25 07:17 Consult Cardiology Routine Diagnostic Imagining Performed 07/20/25 12:09 CT angio chest PE protocol Stat Pending Results Patient Have Any Pending Studies at Discharge: No Discharge Instructions Given to Patient (Per Discharging Provider) Please follow up with your PCP in 1 week. We are working to get you an appt with cardiology as well. if you do not hear back from us by the time you leave, they will call you. Please refrain from drinking alcohol. please take all your medications as prescribed. 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 then stop taking losartan and just take entresto Total Time Total Time Spent Total Time Spent (In Minutes): 55
== END 2025-07-22 13:30 | disposition home or self-care (01) | DRG 315 ==
LOC: ED 10:55 → SUATTDRO 14:20 → 2N 14:20 → INTOOBSV 14:20 → 2N 16:38